=== PATIENT | female | born 1950 | race Caucasian/White ===

== ENCOUNTER 2018-11-14 21:02 | Emergency (ER) | payer OTHER ==
[2018-11-14] MEDS ORDERED: Morphine 4 MG/ML VIAL ONE (21:28)
[2018-11-14] MEDS ORDERED: Ondansetron PF 4 MG/2 ML Vial ONE (21:28)
== END 2018-11-14 22:39 | disposition home or self-care (01) ==
LOC: ERS 21:02
DX: M25.572 Pain in left ankle and joints of left foot (principal); I10 Essential (primary) hypertension; Z79.891 Long term (current) use of opiate analgesic; Z79.899 Other long term (current) drug therapy; E78.5 Hyperlipidemia, unspecified; X50.9XXA Other and unspecified overexertion or strenuous movements or postures, initial encounter
CPT/HCPCS: 96374; 96375; J2270; J2405